=== PATIENT | male | born 1985 | race Caucasian/White ===

== ENCOUNTER 2018-07-19 19:24 | Inpatient (IN) | payer MEDICAID ==
[~2018-07-19 19:24] MED LIST: FLUO-191 PO; NALT50TA PO; NALT50TA6 PO; OLAN10TA22 PO; OLAN10TA6 PO
[2018-07-19] MEDS ORDERED: LORazepam 2 MG/ML VIAL IM ONE (19:45)
[2018-07-19] MEDS ORDERED: HALOPERIDOL LACTATE 5 MG/ML VIAL IM ONE (19:45)
[2018-07-19] MEDS ORDERED: DiphenhydrAMINE HCL 50 MG/ML VIAL IM ONE (19:45)
[2018-07-19] MEDS ORDERED: DiphenhydrAMINE HCL 50 MG/ML VIAL ONE (19:46)
[2018-07-19] MEDS ORDERED: LORazepam 2 MG/ML VIAL ONE (19:46)
[2018-07-19] MEDS ORDERED: HALOPERIDOL LACTATE 5 MG/ML VIAL ONE (19:46)
[2018-07-19 20:00] VITALS: BP 135/77
[2018-07-19] MEDS ORDERED: GuaiFENesin/D-METHORPHAN [SUGAR-FREE] 200-20MG/10 ML SYRUP UDCUP PO PRN (20:15)
[2018-07-19] MEDS ORDERED: MAGNESIUM HYDROXIDE SUSPENSION 30 ML UDCUP PO PRN (20:15)
[2018-07-19] MEDS ORDERED: MAG HYDROX/AL HYDROX/SIMETH ES 30 ML SUSPENSION UDCUP PO PRN (20:15)
[2018-07-19] MEDS ORDERED: PETROLATUM,WHITE 28 GM JELLY TP PRN (20:15)
[2018-07-19] MEDS ORDERED: DOCUSATE SODIUM 100 MG CAPSULE PO PRN (20:15)
[2018-07-19] MEDS ORDERED: LOPERAMIDE HCL 2 MG CAPSULE PO PRN (20:15)
[2018-07-19] MEDS ORDERED: ACETAMINOPHEN 325 MG TABLET PO PRN (20:15)
[2018-07-19] MEDS ORDERED: NICOTINE 14 MG/24 HOUR PATCH TD PRN (20:15)
[2018-07-19] MEDS ORDERED: ALBUTEROL SULFATE HFA 90 MCG/PUFF 8 GM INHALER IH PRN (20:15)
[2018-07-19] MEDS ORDERED: IBUPROFEN 400 MG TABLET PO PRN (20:15)
[2018-07-19] MEDS ORDERED: ONDANSETRON HCL 4 MG TABLET PO PRN (20:15)
[2018-07-19] MEDS ORDERED: CloNIDine HCL 0.1 MG TABLET PO PRN (20:15)
[2018-07-20 08:30] LABS: BASOPHILS % (AUTO) 0.7 % (0.0-2.0); EOSINOPHILS % (AUTO) 6.4 % (1.0-6.0); HEMATOCRIT 40.6 % (41-53); LYMPHOCYTES % (AUTO) 39.8 % (22.0-44.0); MEAN CORPUSCULAR HEMOGLOBIN 29.6 pg (26.0-34.0); MEAN CORPUSCULAR HGB CONC 34.6 G/dL (31.0-37.0); MEAN CORPUSCULAR VOLUME 86 fL (80-100); MONOCYTES # (AUTO) 0.7 K/uL (0.1-1.0); MONOCYTES % (AUTO) 14.2 % (2.0-9.0); NEUTROPHILS % (AUTO) 38.9 % (40.0-70.0); PLATELET COUNT (AUTO) 374 K/uL (150-450); RED BLOOD CELL COUNT(AUTO) 4.73 MIL/uL (4.50-5.90); RED CELL DISTRIBUTION WIDTH 13.1 % (11.5-14.5)
[2018-07-20 08:56] LABS: ALANINE AMINOTRANSFERASE 45 U/L (12-78); ALBUMIN 3.6 g/dL (3.4-5.0); ALKALINE PHOSPHATASE 69 U/L (46-116); ANION GAP 8 mmol/L (8-16); ASPARTATE AMINOTRANSFERASE 39 U/L (15-37); BILIRUBIN,TOTAL 0.7 mg/dL (0.1-1.0); CALCIUM, TOTAL 8.8 mg/dL (8.8-10.5); CARBON DIOXIDE 29 mmol/L (22-29); CHLORIDE 104 mmol/L (98-107); CHOL/HDL RATIO 2.9 (4.2-7.3); CHOLESTEROL 129 mg/dL (131-200); FREE T4 (FREE THYROXINE) 1.47 ng/dL (0.76-1.46); GLOMERULAR FILTR. RATE CALC > 60 mL/min (>60); GLUCOSE,RANDOM 75 mg/dL (70-110); HDL CHOLESTEROL 44 mg/dL (40-60); LDL CHOL (CALC.) 74 mg/dL (0-130); POTASSIUM 3.5 mmol/L (3.5-5.1); SODIUM SERUM 141 mmol/L (136-145); THYROID STIMULATING HORMONE 0.75 uIU/mL (0.36-3.74); TRIGLYCERIDES 56 mg/dL (15-150); UREA NITROGEN, BLOOD 20 mg/dL (7-18)
[2018-07-20] MEDS: MINERAL OIL/PETROLATUM,WHITE PF 3.5 GM OPHTHALMIC OINTMENT OD SCH (09:57)
[2018-07-20] MEDS: LORazepam 2 MG TABLET PO PRN (16:41)
[2018-07-20] MEDS: HALOPERIDOL 5 MG TABLET PO PRN (16:41)
[2018-07-20] MEDS: OLANZapine 10 MG RAPDIS TABLET PO SCH (20:54)
[2018-07-21] MEDS: MINERAL OIL/PETROLATUM,WHITE PF 3.5 GM OPHTHALMIC OINTMENT OD SCH (08:02)
[2018-07-21] MEDS: FLUoxetine HCL 20 MG CAPSULE PO SCH (08:02)
[2018-07-21] MEDS: LORazepam 2 MG TABLET PO PRN (16:12)
[2018-07-21 16:14] VITALS: BP 112/63
[2018-07-21] MEDS: OLANZapine 10 MG RAPDIS TABLET PO SCH (20:56)
[2018-07-21] MEDS: ZOLPIDEM TARTRATE 10 MG TABLET PO PRN (20:57)
[2018-07-22] MEDS: MINERAL OIL/PETROLATUM,WHITE PF 3.5 GM OPHTHALMIC OINTMENT OD SCH (08:29)
[2018-07-22] MEDS: FLUoxetine HCL 20 MG CAPSULE PO SCH (08:29)
[2018-07-22 08:31] VITALS: BP 107/65
[2018-07-22 16:01] VITALS: BP 122/76
[2018-07-22] MEDS: LORazepam 2 MG TABLET PO PRN (16:10)
[2018-07-22] MEDS: ZOLPIDEM TARTRATE 10 MG TABLET PO PRN (20:53)
[2018-07-22] MEDS: OLANZapine 10 MG RAPDIS TABLET PO SCH (20:53)
[2018-07-23 01:46] VITALS: BP 122/72
[2018-07-23 01:47] VITALS: BP 110/78
[2018-07-23] MEDS: FLUoxetine HCL 20 MG CAPSULE PO SCH (08:12)
[2018-07-23] MEDS: MINERAL OIL/PETROLATUM,WHITE PF 3.5 GM OPHTHALMIC OINTMENT OD SCH (08:12)
[2018-07-23] MEDS: LORazepam 2 MG TABLET PO PRN ×2 (08:16→16:17)
[2018-07-23 16:10] VITALS: BP 105/61
[2018-07-23] MEDS: HALOPERIDOL 5 MG TABLET PO PRN (16:17)
[2018-07-23] MEDS: OLANZapine 10 MG RAPDIS TABLET PO SCH (20:36)
[2018-07-23] MEDS: ZOLPIDEM TARTRATE 10 MG TABLET PO PRN (20:36)
[2018-07-24 05:57] VITALS: BP 117/78
[2018-07-24] MEDS: LORazepam 2 MG TABLET PO PRN ×2 (08:01→16:26)
[2018-07-24] MEDS: MINERAL OIL/PETROLATUM,WHITE PF 3.5 GM OPHTHALMIC OINTMENT OD SCH (08:01)
[2018-07-24] MEDS: FLUoxetine HCL 20 MG CAPSULE PO SCH (08:01)
[2018-07-24 08:06] VITALS: BP 100/59
[2018-07-24 16:02] VITALS: BP 115/73
[2018-07-24] MEDS: HALOPERIDOL 5 MG TABLET PO PRN (16:26)
[2018-07-24] MEDS: ZOLPIDEM TARTRATE 10 MG TABLET PO PRN (20:38)
[2018-07-24] MEDS: OLANZapine 10 MG RAPDIS TABLET PO SCH (20:38)
[2018-07-25 05:40] VITALS: BP 118/70
[2018-07-25 08:01] VITALS: BP 109/68
[2018-07-25] MEDS: FLUoxetine HCL 20 MG CAPSULE PO SCH (08:27)
[2018-07-25] MEDS: MINERAL OIL/PETROLATUM,WHITE PF 3.5 GM OPHTHALMIC OINTMENT OD SCH (08:27)
[2018-07-25] MEDS: LORazepam 2 MG TABLET PO PRN ×2 (12:28→16:32)
[2018-07-25 16:08] VITALS: BP 116/69
[2018-07-25] MEDS: OLANZapine 10 MG RAPDIS TABLET PO SCH (20:25)
[2018-07-25] MEDS: ZOLPIDEM TARTRATE 10 MG TABLET PO PRN (20:25)
[2018-07-26 04:58] VITALS: BP 114/78
[2018-07-26] MEDS: MINERAL OIL/PETROLATUM,WHITE PF 3.5 GM OPHTHALMIC OINTMENT OD SCH (08:34)
[2018-07-26] MEDS: FLUoxetine HCL 20 MG CAPSULE PO SCH (08:34)
[2018-07-26 08:37] VITALS: BP 103/67
[2018-07-26 16:00] VITALS: BP 130/67
[2018-07-26] MEDS: LORazepam 2 MG TABLET PO PRN (16:18)
[2018-07-26] MEDS: ZOLPIDEM TARTRATE 10 MG TABLET PO PRN (20:28)
[2018-07-26] MEDS: OLANZapine 10 MG RAPDIS TABLET PO SCH (20:28)
[2018-07-27 04:26] VITALS: BP 113/69
[2018-07-27 08:00] VITALS: BP 102/58
[2018-07-27] MEDS: MINERAL OIL/PETROLATUM,WHITE PF 3.5 GM OPHTHALMIC OINTMENT OD SCH (08:51)
[2018-07-27] MEDS: FLUoxetine HCL 20 MG CAPSULE PO SCH (08:52)
[2018-07-27] MEDS: LORazepam 2 MG TABLET PO PRN ×2 (08:52→16:10)
[2018-07-27 16:18] VITALS: BP 121/63
[2018-07-27] MEDS: ZOLPIDEM TARTRATE 10 MG TABLET PO PRN (20:53)
[2018-07-27] MEDS: OLANZapine 10 MG RAPDIS TABLET PO SCH (20:53)
[2018-07-28 05:06] VITALS: BP 115/72
[2018-07-28 08:08] VITALS: BP 108/68
[2018-07-28] MEDS: FLUoxetine HCL 20 MG CAPSULE PO SCH (08:27)
[2018-07-28] MEDS: MINERAL OIL/PETROLATUM,WHITE PF 3.5 GM OPHTHALMIC OINTMENT OD SCH (08:27)
[2018-07-28] MEDS: LORazepam 2 MG TABLET PO PRN ×2 (12:56→17:00)
[2018-07-28 16:11] VITALS: BP 133/82
[2018-07-28] MEDS: OLANZapine 10 MG RAPDIS TABLET PO SCH (20:46)
[2018-07-28] MEDS: ZOLPIDEM TARTRATE 10 MG TABLET PO PRN (20:46)
[2018-07-29 06:22] VITALS: BP 124/78
[2018-07-29] MEDS: FLUoxetine HCL 20 MG CAPSULE PO SCH (08:05)
[2018-07-29] MEDS: MINERAL OIL/PETROLATUM,WHITE PF 3.5 GM OPHTHALMIC OINTMENT OD SCH (08:05)
[2018-07-29 09:18] VITALS: BP 131/82
[2018-07-29] MEDS: LORazepam 2 MG TABLET PO PRN (15:21)
[2018-07-29 16:00] VITALS: BP 117/69
[2018-07-29] MEDS: HALOPERIDOL 5 MG TABLET PO PRN (17:27)
[2018-07-29] MEDS: OLANZapine 10 MG RAPDIS TABLET PO SCH (21:20)
[2018-07-29] MEDS: ZOLPIDEM TARTRATE 10 MG TABLET PO PRN (21:20)
[2018-07-30 06:12] VITALS: BP 118/78
[2018-07-30] MEDS: FLUoxetine HCL 20 MG CAPSULE PO SCH (08:12)
[2018-07-30] MEDS: LORazepam 2 MG TABLET PO PRN ×2 (08:12→17:06)
[2018-07-30] MEDS: MINERAL OIL/PETROLATUM,WHITE PF 3.5 GM OPHTHALMIC OINTMENT OD SCH (08:13)
[2018-07-30 08:22] VITALS: BP 113/67
[2018-07-30 16:12] VITALS: BP 116/62
[2018-07-30] MEDS: OLANZapine 10 MG RAPDIS TABLET PO SCH (21:01)
[2018-07-30] MEDS: ZOLPIDEM TARTRATE 10 MG TABLET PO PRN (21:01)
[2018-07-31 06:10] VITALS: BP 127/74
[2018-07-31] MEDS: FLUoxetine HCL 20 MG CAPSULE PO SCH (08:11)
[2018-07-31] MEDS: MINERAL OIL/PETROLATUM,WHITE PF 3.5 GM OPHTHALMIC OINTMENT OD SCH (08:11)
[2018-07-31 08:21] VITALS: BP 107/63
[2018-07-31 16:00] VITALS: BP 107/67
[2018-07-31] MEDS: LORazepam 2 MG TABLET PO PRN (16:02)
[2018-07-31] MEDS: OLANZapine 10 MG RAPDIS TABLET PO SCH (20:31)
[2018-07-31] MEDS: ZOLPIDEM TARTRATE 10 MG TABLET PO PRN (20:31)
[2018-08-01 06:13] VITALS: BP 118/78
[2018-08-01 07:53] VITALS: BP 141/67
[2018-08-01 07:56] VITALS: BP 141/67
[2018-08-01 08:03] VITALS: BP 141/67
[2018-08-01] MEDS: MINERAL OIL/PETROLATUM,WHITE PF 3.5 GM OPHTHALMIC OINTMENT OD SCH (08:18)
[2018-08-01] MEDS: LORazepam 2 MG TABLET PO PRN ×2 (08:18→16:09)
[2018-08-01] MEDS: FLUoxetine HCL 20 MG CAPSULE PO SCH (08:18)
[2018-08-01] MEDS: OLANZapine 5 MG TABLET PO SCH (10:58)
[2018-08-01 16:00] VITALS: BP 127/63
[2018-08-01] MEDS: ZOLPIDEM TARTRATE 10 MG TABLET PO PRN (20:32)
[2018-08-01] MEDS: OLANZapine 10 MG RAPDIS TABLET PO SCH (20:32)
[2018-08-02 06:12] VITALS: BP 107/66
[2018-08-02 08:05] VITALS: BP 124/84
[2018-08-02] MEDS: FLUoxetine HCL 20 MG CAPSULE PO SCH (08:41)
[2018-08-02] MEDS: MINERAL OIL/PETROLATUM,WHITE PF 3.5 GM OPHTHALMIC OINTMENT OD SCH (08:42)
[2018-08-02] MEDS: OLANZapine 5 MG TABLET PO SCH (08:42)
[2018-08-02 16:00] VITALS: BP 121/71
[2018-08-02] MEDS: LORazepam 2 MG TABLET PO PRN (16:12)
[2018-08-02] MEDS: OLANZapine 10 MG RAPDIS TABLET PO SCH (20:04)
[2018-08-03 06:29] VITALS: BP 122/73
[2018-08-03 08:00] VITALS: BP 114/60
[2018-08-03] MEDS: OLANZapine 5 MG TABLET PO SCH (08:09)
[2018-08-03] MEDS: LORazepam 2 MG TABLET PO PRN ×2 (08:09→16:38)
[2018-08-03] MEDS: FLUoxetine HCL 20 MG CAPSULE PO SCH (08:09)
[2018-08-03] MEDS: MINERAL OIL/PETROLATUM,WHITE PF 3.5 GM OPHTHALMIC OINTMENT OD SCH (08:11)
[2018-08-03 16:26] VITALS: BP 101/62
[2018-08-03] MEDS: ZOLPIDEM TARTRATE 10 MG TABLET PO PRN (20:37)
[2018-08-03] MEDS: OLANZapine 10 MG RAPDIS TABLET PO SCH (20:37)
[2018-08-04 06:22] VITALS: BP 112/70
[2018-08-04] MEDS: FLUoxetine HCL 20 MG CAPSULE PO SCH (08:11)
[2018-08-04] MEDS: OLANZapine 5 MG TABLET PO SCH (08:13)
[2018-08-04] MEDS: MINERAL OIL/PETROLATUM,WHITE PF 3.5 GM OPHTHALMIC OINTMENT OD SCH (08:15)
[2018-08-04 08:17] VITALS: BP 101/66
[2018-08-04 16:00] VITALS: BP 141/60
[2018-08-04] MEDS: LORazepam 2 MG TABLET PO PRN (16:14)
[2018-08-04] MEDS: OLANZapine 10 MG RAPDIS TABLET PO SCH (20:28)
[2018-08-04] MEDS: ZOLPIDEM TARTRATE 10 MG TABLET PO PRN (20:29)
[2018-08-05 05:51] VITALS: BP 134/78
[2018-08-05 08:14] VITALS: BP 107/62
[2018-08-05] MEDS: MINERAL OIL/PETROLATUM,WHITE PF 3.5 GM OPHTHALMIC OINTMENT OD SCH (08:21)
[2018-08-05] MEDS: OLANZapine 5 MG TABLET PO SCH (08:21)
[2018-08-05] MEDS: FLUoxetine HCL 20 MG CAPSULE PO SCH (08:21)
[2018-08-05] MEDS: LORazepam 2 MG TABLET PO PRN (10:43)
[2018-08-05 16:13] VITALS: BP 108/66
[2018-08-05] MEDS ORDERED: FLUO-191 PO (16:23)
[2018-08-05] MEDS ORDERED: OLAN10TA6 PO (16:23)
[2018-08-05] MEDS ORDERED: OLAN5TAB2 PO (16:24)
== END 2018-08-05 18:51 | disposition home or self-care (01) | DRG 750 ==
LOC: EDSTATUS 19:25 → B3A 19:56
DX: F20.0 Paranoid schizophrenia (principal); E44.0 Moderate protein-calorie malnutrition; Z59.0 Homelessness; D72.829 Elevated white blood cell count, unspecified; E05.90 Thyrotoxicosis, unspecified without thyrotoxic crisis or storm; E55.9 Vitamin D deficiency, unspecified; F10.10 Alcohol abuse, uncomplicated; H54.61 Unqualified visual loss, right eye, normal vision left eye; I10 Essential (primary) hypertension; J44.9 Chronic obstructive pulmonary disease, unspecified; Z79.899 Other long term (current) drug therapy; Z71.41 Alcohol abuse counseling and surveillance of alcoholic; Z28.21 Immunization not carried out because of patient refusal
CPT/HCPCS: 83036; 84439; 84443; J1200; J1630; J2060